=== PATIENT | female | born 1975 | race Caucasian/White ===

== ENCOUNTER 2017-02-22 08:48 | Emergency (ER) | payer MEDICAID ==
[~2017-02-22] VITALS: Ht 160 cm; Wt 57.1 kg
[2017-02-22] MEDS ORDERED: ALBU90AE INH (09:27)
[2017-02-22] MEDS ORDERED: TIOT18CA INH (09:27)
[2017-02-22] MEDS ORDERED: BECL8.7A6 INH (09:27)
[2017-02-22 09:36] VITALS: BP 126/89
== END 2017-02-22 09:56 | disposition left against medical advice (07) ==
LOC: ED 09:50
DX: J44.1 Chronic obstructive pulmonary disease with (acute) exacerbation (principal)
CPT/HCPCS: 93005; 99283